=== PATIENT | male | born 1955 | race Caucasian/White ===

== ENCOUNTER 2023-07-01 16:37 | Emergency (ER) | payer OTHER ==
[~2023-07-01] VITALS: Ht 180.3 cm; Wt 131.5 kg
[2023-07-01 17:17] VITALS: O2SAT 97
== END 2023-07-01 20:10 | disposition left against medical advice (07) ==
LOC: ER 16:39
DX: M54.2 Cervicalgia (principal); Z53.21 Procedure and treatment not carried out due to patient leaving prior to being seen by health care provider
CPT/HCPCS: A4606; A4663